=== PATIENT | female | born 1990 | race Caucasian/White ===

== ENCOUNTER 2018-11-22 18:01 | Emergency (ER) | payer MEDICAID, OTHER ==
[2018-11-22 19:31] LABS: URINE BLOOD (Dip) POC Trace-lysed (NEGATIVE); URINE GLUCOSE (Dip) POC Negative (NEGATIVE); URINE KETONES (Dip) POC Negative (NEGATIVE); URINE LEUKOCYTE EST (Dip) POC Negative (NEGATIVE); URINE NITRITE (Dip) POC Positive (NEGATIVE); URINE TOTAL PROTEIN POC Negative (NEGATIVE)
[2018-11-22] MEDS: SOD CHLORIDE 0.9% 1,000 ML IV (19:40)
[2018-11-22 19:42] LABS: ADD MAN DIFF? NO
[2018-11-22] MEDS: DIPHENHYDRAMINE 50 MG INJ IV (19:42)
[2018-11-22] MEDS: KETOROLAC 30 MG INJ IV (19:42)
[2018-11-22] MEDS: ONDANSETRON 4 MG INJ IV (19:43)
[2018-11-22 19:44] LABS: BASOPHILS % 0.4 % (0.0-2.0); EOSINOPHILS # 0.2 10^3/ul (0.0-0.5); EOSINOPHILS % 2.5 % (0.0-7.0); HEMATOCRIT 40.9 % (37.0-47.0); LYMPHOCYTES # 2.8 10^3/ul (0.8-2.9); LYMPHOCYTES % 35.3 % (15.0-51.0); MEAN CORPUSCULAR HGB CONC 31.8 g/dl (32.0-37.0); MEAN CORPUSCULAR VOLUME 91.1 fl (82.0-101.0); MEAN PLATELET VOLUME 12.1 fl (7.4-10.4); MONOCYTE # 0.4 10^3/ul (0.3-0.9); MONOCYTES % 5.1 % (0.0-11.0); NEUTROPHIL # 4.4 10^3/ul (1.6-7.5); NEUTROPHILS % 56.6 % (39.0-77.0); PLATELET COUNT 244 10^3/UL (140-415); RED BLOOD COUNT 4.49 10^6/ul (4.20-5.40); RED CELL DISTRIBUTION WIDTH 12.8 % (11.5-14.5)
[2018-11-22 19:44] LABS: WHITE BLOOD COUNT 7.9 10^3/ul (4.8-10.8)
[2018-11-22 20:06] LABS: ANION GAP 9 (5-13); BLOOD UREA NITROGEN 12 mg/dl (7-20); CALCIUM 9.1 mg/dl (8.4-10.2); CARBON DIOXIDE 26 mmol/L (21-31); CHLORIDE 105 mmol/L (97-110); CREATININE 0.75 mg/dl (0.44-1.00); Estimated GFR > 60 mL/min (>60); GLUCOSE 85 mg/dl (70-220); SODIUM 140 mmol/L (135-144)
== END 2018-11-22 21:47 | disposition home or self-care (01) ==
LOC: FTE 18:01
DX: R51 Headache (principal); R11.0 Nausea
CPT/HCPCS: 36415; 80048; 81003; 81025; 85025; 96374; 96375; 99284-25